=== PATIENT | male | born 1940 | race Caucasian/White ===

== ENCOUNTER 2020-04-10 11:07 | Emergency (ER) | payer MEDICARE ==
[2016-03-24 08:05] VITALS: BP 116/77
[~2020-04-10 11:07] MED LIST: ASPI325T8 PO; FURO-69 PO; OMEP20CA16 PO; POTA10CA PO; SIMV10TA15 PO; TAMS0.4C2 PO
--- NOTE | 2020-04-10 11:41 | PHYS DOC ---
Past History Past Medical History: Arthritis, Hypertension Past Surgical History: No Surgical History Alcohol Use: Occasionally Drug Use: None Adult General Chief Complaint Chief Complaint: LACERATION/AVULSION [facility] HPI Patient is a 80yo m who presents for laceration/skin tear. Onset was just prior to arrival, patient reports falling forwards onto gravel area and scraping up his right forearm and subsequent right knee. He has a superficial skin tear that he reports does not need sutures but presented for need of updates tetanus and recommendations on wound care routine. He takes 81mg aspirin daily. Denies hitting head or suffering LOC. No other concerning symptoms reported Review of Systems Review of Systems Fourteen body systems of review of systems have been reviewed. See HPI for pertinent positives and negative responses, other soria all other systems are negative, non-pertinent or non-contributory Allergies Allergies Allergies Coded Allergies Type Severity Reaction Last Updated Verified No Known Drug Allergies 03/24/16 No Physical Exam Physical Exam Constitutional: Well developed, well nourished, no acute distress, non-toxic appearance. [] HENT: Normocephalic, atraumatic, bilateral external ears normal, oropharynx moist, no oral exudates, nose normal. [] Eyes: PERRLA, EOMI, conjunctiva normal, no discharge. [] Neck: Normal range of motion, no tenderness, supple, no stridor. [] Cardiovascular:Heart rate regular rhythm, no murmur [] Lungs & Thorax: Bilateral breath sounds clear to auscultation [] Abdomen: Bowel sounds normal, soft, no tenderness, no masses, no pulsatile masses. [] Skin: Warm, dry, no erythema, no rash. Superficial abrasion noted to right forearm and right knee without invasion past dermis, no tears/lacerations in need of sutures/dermabond/repair Back: No tenderness, no CVA tenderness. [] Extremities: No tenderness, no cyanosis, no clubbing, ROM intact, no edema. [] Neurologic: Alert and oriented X 3, normal motor function, normal sensory function, no focal deficits noted. [] Psychologic: Affect normal, judgement normal, mood normal. [] EKG EKG [] Radiology/Procedures Radiology/Procedures [] Heart Score Risk Factors: Risk Factors: DM, Current or recent (<one month) smoker, HTN, HLP, family history of CAD, obesity. Risk Scores: Risk Factors: DM, Current or recent (<one month) smoker, HTN, HLP, family history of CAD, obesity. Course & Med Decision Making Course & Med Decision Making Pertinent Labs and Imaging studies reviewed. (See chart for details) Discussed diagnosis of superficial skin tear/abrasion. Tetanus updated today. Wound care instructions discussed at length with good understanding by patient. No indication for further intervention in ED setting Advised close PCP follow-up in upcoming 2-14 days for repeat evaluation. Strict return precautions discussed with good understanding. All questions and concerns addressed prior to ED departure in stable condition Dragon Disclaimer Dragon Disclaimer This electronic medical record was generated, in whole or in part, using a voice recognition dictation system. Departure Departure: Impression: Primary Impression: Skin abrasion Disposition: 01 DC HOME SELF CARE/HOMELESS Condition: STABLE Referrals: UGO LOPEZ MD (PCP) Patient Instructions: CAILIN Smith DO Apr 10, 2020 11:41
[2020-04-10] MEDS ORDERED: DIPH,PERTUSS(ACELL),TET VAC/PF 0.5 ML SYRINGE. VAX IM ONE ×2 (12:00→12:01)
[2020-04-10] MEDS ORDERED: NEOMY/BACITR/POLYMYXIN OINT PACKET. TP ONE (12:01)
== END 2020-04-10 12:45 | disposition home or self-care (01) ==
LOC: ER 11:07
DX: S50.811A Abrasion of right forearm, initial encounter (principal); S80.211A Abrasion, right knee, initial encounter; M19.90 Unspecified osteoarthritis, unspecified site; I10 Essential (primary) hypertension; W18.39XA Other fall on same level, initial encounter; Y93.89 Activity, other specified; Y92.64 Mine or pit as the place of occurrence of the external cause; Y99.8 Other external cause status
CPT/HCPCS: 90471; 90715; 99283

== ENCOUNTER → 2021-01-03 | Outpatient (CLI) | payer MEDICARE ==
[2016-03-24 08:05] VITALS: BP 116/77
--- NOTE | 2021-01-03 08:57 | RAD ---
EXAM: Frontal view of the chest, AP views of the abdomen in upright and supine positions. CLINICAL INDICATION: Reason: DIARRHEA, WEIGHTLOSS, DISTENTION / Spl. Instructions: / History: COMPARISON: None. FINDINGS and IMPRESSION: The heart is not enlarged. Mediastinal and hilar contours are normal. Linear and patchy opacities bi lateral lung bases likely atelectasis or scarring. No pleural effusion or pneumothorax. No abnormal small or large bowel dilatation. Moderate colonic stool content. No abnormal soft tissu e mass effect. No suspicious calcifications are seen. No free intraperitoneal gas. Electronically signed by: Elías Enrique MD (01/03/2021 8:54 AM) [id number]
== END ==
LOC: RAD 08:15
PROVIDERS: ATTEND Family Medicine
DX: R91.8 Other nonspecific abnormal finding of lung field (principal); R14.0 Abdominal distension (gaseous); R19.7 Diarrhea, unspecified
CPT/HCPCS: 74022